=== PATIENT | female | born 1960 | race Caucasian/White ===

== ENCOUNTER → 2019-12-07 | Outpatient (CLI) | payer OTHER ==
[2019-12-07 09:43] LABS: BASO % 0.7 % (0.0-1.0); EOS # 0.2 10*3/uL (0.0-0.4); EOS % 3.2 % (1.0-4.0); HEMATOCRIT 39.9 % (37.0-47.0); HEMOGLOBIN 12.5 g/dl (12.0-16.0); LYMPH # 2.3 10*3/uL (1.3-4.4); LYMPH % 38.4 % (27.0-41.0); MEAN CELL VOLUME 94.3 fl (81.0-99.0); MEAN CORPUSCULAR HGB 29.6 pg (27.0-31.0); MEAN CORPUSCULAR HGB CONC 31.3 g/dl (33.0-37.0); MEAN PLATELET VOLUME 11.4 fl (9.6-12.3); MONO # 0.5 10*3/uL (0.1-1.0); MONO % 7.6 % (3.0-9.0); NEUT # 2.9 10*3/uL (2.3-7.9); NEUT % 49.6 % (47.0-73.0); PLATELET COUNT AUTOMATED 203 10*3/uL (130-400); RED BLOOD COUNT 4.23 10*6/uL (4.10-5.10); RED CELL DISTRI WIDTH 12.7 % (0-14.5); WHITE BLOOD COUNT 5.9 10*3/uL (4.8-10.8)
[2019-12-07 10:13] LABS: ALBUMIN 3.5 gm/dl (3.1-4.5); ALKALINE PHOSPHATASE 127 U/L (45-117); BUN 10 mg/dl (7-24); CHLORIDE 111 mmol/L (98-107); CHOLESTEROL 238 mg/dL (<200); CREATININE 0.77 mg/dL (0.55-1.02); FREE T4 0.93 ng/dl (0.76-1.46); HDL CHOLESTEROL 51 mg/dl (40-60); LDL CHOLESTEROL 148 mg/dL (9-159); POTASSIUM 3.9 mmol/L (3.5-5.1); SGOT/AST 11 IU/L (3-35); SGPT/ALT 22 U/L (12-78); SODIUM 142 mmol/L (136-145); TOTAL PROTEIN 7.3 gm/dL (6.4-8.2); TRIGLYCERIDES 197 mg/dl (<150); VLDL CHOLESTEROL 39 mg/dL (6-40)
[2019-12-07 10:35] LABS: VITAMIN D, 25-HYDROXY 18.3 ng/mL (30-100)
== END | disposition home or self-care (01) ==
LOC: LAB 09:03
PROVIDERS: Internal Medicine
DX: M25.572 Pain in left ankle and joints of left foot (principal); M25.512 Pain in left shoulder; Z13.29 Encounter for screening for other suspected endocrine disorder; E11.9 Type 2 diabetes mellitus without complications; I10 Essential (primary) hypertension; E55.9 Vitamin D deficiency, unspecified; D52.9 Folate deficiency anemia, unspecified; D51.9 Vitamin B12 deficiency anemia, unspecified; R53.81 Other malaise; R79.89 Other specified abnormal findings of blood chemistry

== ENCOUNTER 2021-12-20 11:53 | Emergency (ER) | payer OTHER ==
[~2021-12-20] VITALS: Ht 167.6 cm; Wt 83.9 kg
== END 2021-12-20 13:37 | disposition home or self-care (01) ==
LOC: ED 11:53
DX: S96.912A Strain of unspecified muscle and tendon at ankle and foot level, left foot, initial encounter (principal); Z88.0 Allergy status to penicillin; W00.0XXA Fall on same level due to ice and snow, initial encounter; Y93.89 Activity, other specified; Y92.89 Other specified places as the place of occurrence of the external cause; Y99.8 Other external cause status

== ENCOUNTER 2022-04-12 17:49 | Emergency (ER) | payer OTHER ==
[~2022-04-12] VITALS: Wt 83.0 kg
== END 2022-04-12 20:41 | disposition home or self-care (01) ==
LOC: ED 17:49
DX: R05.9 Cough, unspecified (principal); Z20.822 Contact with and (suspected) exposure to COVID-19; R50.9 Fever, unspecified; Z88.0 Allergy status to penicillin; F17.200 Nicotine dependence, unspecified, uncomplicated

== ENCOUNTER 2022-04-14 18:21 | Emergency (ER) | payer OTHER ==
[~2022-04-14] VITALS: Ht 167.6 cm; Wt 83.9 kg
[2022-04-14 19:35] LABS: BASO % 0.3 % (0.0-1.0); EOS % 0.4 % (1.0-4.0); HEMATOCRIT 36.5 % (37.0-47.0); LYMPH # 1.1 10*3/uL (1.3-4.4); LYMPH % 14.5 % (27.0-41.0); MEAN CELL VOLUME 87.5 fl (81.0-99.0); MEAN CORPUSCULAR HGB 29.5 pg (27.0-31.0); MEAN CORPUSCULAR HGB CONC 33.7 g/dl (33.0-37.0); MEAN PLATELET VOLUME 10.8 fl (9.6-12.3); MONO # 1.2 10*3/uL (0.1-1.0); NEUT # 5.3 10*3/uL (2.3-7.9); NEUT % 68.5 % (47.0-73.0); PLATELET COUNT AUTOMATED 183 10*3/uL (130-400); RED BLOOD COUNT 4.17 10*6/uL (4.10-5.10); RED CELL DISTRI WIDTH 12.2 % (0-14.5); WHITE BLOOD COUNT 7.7 10*3/uL (4.8-10.8)
[2022-04-14 19:50] LABS: ALKALINE PHOSPHATASE 173 U/L (45-117); BUN 12 mg/dl (7-24); CHLORIDE 105 mmol/L (98-107); CREATININE 0.67 mg/dL (0.55-1.02); POTASSIUM 2.6 mmol/L (3.5-5.1); SGOT/AST 65 IU/L (3-35); SGPT/ALT 60 U/L (12-78); SODIUM 136 mmol/L (136-145); TOTAL PROTEIN 7.4 gm/dL (6.4-8.2)
[2022-04-14] MEDS ORDERED: K-TAB20 MEQ PO (22:16)
== END 2022-04-14 22:20 | disposition home or self-care (01) ==
LOC: ED 18:21
PROVIDERS: Physician Assistant
DX: E87.6 Hypokalemia (principal); Z88.0 Allergy status to penicillin